=== PATIENT | female | born 1985 | race Caucasian/White ===

== ENCOUNTER 2017-12-18 09:07 | Emergency (ER) | payer OTHER ==
[~2017-12-18] VITALS: Ht 177.8 cm; Wt 89.4 kg
[2017-12-18 09:55] LABS: BASOPHIL (%) 0.5 % (0-1); EOSINOPHIL COUNT 0.2 K/uL (0-0.3); HEMATOCRIT 38.6 % (36.0-46.0); HEMOGLOBIN 13.4 G/DL (11.9-15.5); IMMATURE GRANULOCYTE (%) 0.4 % (0.0-0.7); LYMPHOCYTE (%) 37.4 % (15-42); LYMPHOCYTE COUNT 2.8 K/uL (1.0-2.8); MCHC 34.7 G/DL (30.0-36.0); MCV 89.4 FL (83-99); MONOCYTE (%) 6.7 % (3-12); MONOCYTE COUNT 0.5 K/uL (0-0.8); NEUTROPHIL COUNT 3.8 K/uL (1.8-6.4); PLATELET COUNT 418 K/uL (156-360); RBC DIS.WIDTH-CV 12.4 % (11.8-14.6); RED BLOOD COUNT 4.32 M/uL (3.80-5.20); WHITE BLOOD COUNT 7.4 K/uL (4.1-10.2)
[2017-12-18 10:06] LABS: CHLORIDE 110 mEq/L (99-109); POTASSIUM 4.3 mEq/L (3.7-5.4); SODIUM 143 mEq/L (136-147)
[2017-12-18 10:07] LABS: GLUCOSE 99 mg/dL (70-99)
[2017-12-18 10:11] LABS: CREATININE 0.8 mg/dL (0.6-1.3); GFR ESTIMATE (CALCULATED) > 59 mL/min/
[2017-12-18 10:12] LABS: UREA NITROGEN (BUN) 11 mg/dL (9-23)
[2017-12-18 10:19] LABS: QUANTITATIVE HCG < 4.0 MIU/ML
[2017-12-18] MEDS ORDERED: TYLENOL WITH C1 EACH PO (12:19)
[2017-12-18 12:25] VITALS: BP 132/80
== END 2017-12-18 12:28 | disposition home or self-care (01) ==
LOC: EME 09:07
PROVIDERS: Emergency Medicine
DX: S30.1XXA Contusion of abdominal wall, initial encounter (principal); S70.01XA Contusion of right hip, initial encounter; V43.52XA Car driver injured in collision with other type car in traffic accident, initial encounter; Y92.410 Unspecified street and highway as the place of occurrence of the external cause; F17.200 Nicotine dependence, unspecified, uncomplicated; Z88.0 Allergy status to penicillin
CPT/HCPCS: 73090; 73502; 74177; 80048; 84702; 85025; 99281; 99285; J7030